=== PATIENT | male | born 1975 | race Caucasian/White ===

== ENCOUNTER 2023-02-04 13:44 | Outpatient (OUT) | payer SELFPAY ==
--- NOTE | 2023-02-04 | XR_ITS ---
The [address] [address] Patient Name: KELLY SMITH MRN: [id number] date: 1975 Sex: M Assigned Patient Location: [facility] Current Patient Location: RAD Accession/Order Number: [id number] Exam Date: 02/04/2023 14:30 Report Date: 02/04/2023 17:05 At the request of: DRE GREENE Procedure: XR foot RT min 3V PROCEDURE: XR foot RT min 3V COMPARISON: None. HISTORY: RIGHT FOOT PAIN FINDINGS: BONES:No fracture, acute abnormality, or significant arthropathy. SOFT TISSUES:Negative. No visible soft tissue swelling. EFFUSION:None visible. OTHER: Negative. XR/XR foot RT min 3V IMPRESSION: No acute disease. Electronically authenticated by: HARRY DUPREE Date: 02/04/2023 17:05
== END 2023-02-04 13:45 | disposition home or self-care (01) ==
LOC: RAD 13:44
PROVIDERS: Visit Provider Podiatrist Foot & Ankle Surgery
DX: M79.671 Pain in right foot (principal)
CPT/HCPCS: 73630

== ENCOUNTER 2023-02-10 12:53 | Outpatient (RCR) | payer BC, SELFPAY | END 2023-02-19 16:13 | disposition home or self-care (01) | LOC: PT 12:53 | PROVIDERS: PCP Nurse Practitioner; Visit Provider Podiatrist Foot & Ankle Surgery | DX: M72.2 Plantar fascial fibromatosis (principal); R26.89 Other abnormalities of gait and mobility | CPT/HCPCS: 97110; 97161; 97530 ==